=== PATIENT | female | born 1980 | race Two or more races ===

== ENCOUNTER 2018-12-13 17:27 | Emergency (ER) | payer OTHER ==
[~2018-12-13] VITALS: Ht 160 cm; Wt 74.8 kg
[2018-12-13] MEDS ORDERED: FLUOXETINE HCL20 M1 (18:07)
[2018-12-13] MEDS ORDERED: BUSPIRONE HCL15 MG (18:08)
[2018-12-13] MEDS ORDERED: TRAZODONE HCL50 MG (18:08)
[2018-12-13] MEDS ORDERED: ABILIFY10 MG (18:08)
== END 2018-12-13 23:40 | disposition home or self-care (01) ==
LOC: ER 17:27
DX: B34.9 Viral infection, unspecified (principal); J32.8 Other chronic sinusitis

== ENCOUNTER 2019-05-17 15:49 | Emergency (ER) | payer OTHER ==
[~2019-05-17] VITALS: Ht 157.5 cm; Wt 76.7 kg
[~2019-05-17 15:49] MED LIST: ABILIFY10 MG; BUSPIRONE HCL15 MG; FLUOXETINE HCL20 M1; TRAZODONE HCL50 MG
== END 2019-05-17 18:01 | disposition home or self-care (01) ==
LOC: ER 15:49
DX: R42 Dizziness and giddiness (principal); R30.0 Dysuria

== ENCOUNTER 2019-08-09 15:35 | Emergency (ER) | payer OTHER ==
[~2019-08-09] VITALS: Ht 157.5 cm; Wt 75.3 kg
[2019-08-09] MEDS ORDERED: [UNRECOGNIZED DRUG - OTHER] (16:19)
== END 2019-08-10 01:15 | disposition home or self-care (01) ==
LOC: ER 15:35
DX: J36 Peritonsillar abscess (principal)

== ENCOUNTER 2019-08-13 10:27 | Outpatient (CLI) | payer OTHER ==
[~2019-08-13] VITALS: Ht 157.5 cm; Wt 76.2 kg
[~2019-08-13 10:27] MED LIST changes: +[UNRECOGNIZED DRUG - OTHER]
== END 2019-08-13 14:15 | disposition home or self-care (01) ==
LOC: OFIC 805 10:27
DX: J03.80 Acute tonsillitis due to other specified organisms (principal); K12.39 Other oral mucositis (ulcerative); R13.19 Other dysphagia

== ENCOUNTER 2019-08-20 09:37 | Outpatient (CLI) | payer OTHER ==
[~2019-08-20] VITALS: Ht 152.4 cm; Wt 76.2 kg
== END 2019-08-20 12:49 | disposition home or self-care (01) ==
LOC: OFIC 805 09:37
DX: G44.52 New daily persistent headache (NDPH) (principal); K12.1 Other forms of stomatitis; J03.80 Acute tonsillitis due to other specified organisms

== ENCOUNTER 2021-10-13 22:49 | Emergency (ER) | payer OTHER | END 2021-10-14 | disposition left against medical advice (07) | LOC: ER 22:49 | DX: Z53.21 Procedure and treatment not carried out due to patient leaving prior to being seen by health care provider (principal) ==

== ENCOUNTER 2021-10-27 14:07 | Emergency (ER) | payer OTHER ==
[~2021-10-27] VITALS: Ht 157.5 cm; Wt 86.2 kg
== END 2021-10-27 17:47 | disposition home or self-care (01) ==
LOC: ER 14:07
DX: R51.9 Headache, unspecified (principal)

== ENCOUNTER 2022-08-15 10:16 | Emergency (ER) | payer OTHER ==
[~2022-08-15] VITALS: Ht 160 cm; Wt 81.6 kg
[2022-08-15] MEDS ORDERED: BUSPIRONE HCL7.5 MG PO (10:40)
[2022-08-15] MEDS ORDERED: LEXAPRO5 MG PO (10:40)
[2022-08-15] MEDS ORDERED: DEPAKOTE ER250 MG PO (10:41)
== END 2022-08-15 12:31 | disposition home or self-care (01) ==
LOC: ER 10:16
DX: G44.209 Tension-type headache, unspecified, not intractable (principal); Z88.0 Allergy status to penicillin

== ENCOUNTER 2023-10-15 09:05 | Outpatient (CLI) | payer OTHER ==
[~2023-10-15 09:05] MED LIST changes: +BUSPIRONE HCL7.5 MG PO; +DEPAKOTE ER250 MG PO; +LEXAPRO5 MG PO
== END 2023-10-15 09:17 | disposition home or self-care (01) ==
LOC: MAMO-SONO 09:05
PROVIDERS: ATTEND Obstetrics & Gynecology Obstetrics
DX: N64.4 Mastodynia (principal)

== ENCOUNTER → 2024-06-16 | Emergency (ER) | payer OTHER ==
[~2024-06-16] VITALS: Ht 162.6 cm; Wt 97.5 kg
[~2024-06-16] MED LIST changes: +LORazepam 2 MG/ML VIAL IM ONE; +LORazepam 2 MG/ML VIAL ONE
== END | disposition home or self-care (01) ==
LOC: ER 12:14
DX: F41.0 Panic disorder [episodic paroxysmal anxiety] (principal); Z88.0 Allergy status to penicillin